=== PATIENT | female | born 1955 | race Caucasian/White ===

== ENCOUNTER 2016-10-06 22:08 | Inpatient (IN) | END 2016-10-08 14:25 | disposition home or self-care (01) | DRG 390 | DX: K56.60 Unspecified intestinal obstruction (principal); E78.5 Hyperlipidemia, unspecified; E66.9 Obesity, unspecified; Z68.35 Body mass index [BMI] 35.0-35.9, adult; K57.90 Diverticulosis of intestine, part unspecified, without perforation or abscess without bleeding; K44.9 Diaphragmatic hernia without obstruction or gangrene; D72.829 Elevated white blood cell count, unspecified ==

== ENCOUNTER 2016-10-14 15:05 | Outpatient (CLI) | payer OTHER ==
[~2016-10-14] VITALS: Ht 160 cm; Wt 87.0 kg
[~2016-10-14 15:05] MED LIST: ATOR20TA65 PO; PANT40TA3 PO
[2016-10-14 15:23] VITALS: BP 135/62; PULSE 73; RESP 16; Ht 160 cm; Wt 87.0 kg
--- NOTE | 2016-10-14 16:04 | PN ---
Date/Time of Note Date/Time of Note DATE: 10/14/16 TIME: 15:30 Outpatient Progress Note Chief Complaint Abdominal pain/hyperlipidemia/PUD HPI Abdominal pain/patient was recently admitted with abdominal pain, no nausea vomiting, patient has small bowel obstruction, improved significantly, patient has BMI on regular basis, no blood or mucus, Hyperlipidemia/no xanthoma, on medication, no side effect of medication, PUD/no nausea or vomiting, no abdominal distention, no heartburn, patient did not refill the medication, Review of Systems Const: No Fever, no chills, no Wt. loss, no Fatigue, normal appetite, no diaphoresis. Eyes: No pain, no discharge, no redness, no visual change, no foreign body. ENT: No pain, no bleeding, no congestion, no sore throat, no dysphagia, no discharge or rhinitis. Lymph: No adenopathy, no tender nodes, no lymphedema. Resp: No SOB, no cough, no sputum, no wheezing, no chest pain. CV: No chest pain, no palpitaions, no MOSS, no PND, no edema. GI: Normal appetite, minimal abdominal discomfort, \, no nausea, no vomiting, no diarrhea, no blood, no constipation. : No frequency, no urgency, no dysuria, no hematuria, no flank pain, no discharge, no bleeding. Musc: No bone/joint pain, no back pain, no neck pain, no knee pain, no restricted ROM. Skin: No rash, no skin lesions, no erythema, no laceration, no bruising, no pruritus. Neuro: No PARIS, no dizziness, no syncope, no seizure, no focal-weakness. Endo: No polyuria, no polydypsia, no dry-skin, no temp-intolerance. Psych: No hallucinations, no depression, no anxiety, no suicidal ideation. Ext: No edema, no pain, no ulcer, no weakness. Physical Exam General Appearance: A 61 year-old female who appears well-developed, well- nourished, in no acute distress. HEENT: Head normocephalic, atraumatic. Pupils equal, round, reactive to light and accommodate. Sclerae are no jaundice. Nasal turbinates pink without erythema or nasal discharge. Mucous membranes pink and moist without lesions. Oropharynx clear without any exudate or discharge. NECK: Supple. Trachea midline, No thyromegaly, No cervical lymphadenopathy, No mass, No carotid bruits, No JVD, Carotid pulses 2+ bilaterally. PULMONARY: Clear to auscultaion bilaterally, No retractions, Chest expansion symmetric bilaterally, no rales, no ronchi, no dulness on percussion. CARDIAC: Normal SI and S2, Regular rate and rythm, no murmur, gallop, or rub. GASTROINTESTINAL: Abdomen is soft, n minimal abdominal especially epigastric discomfort,, Non Rigid, No distention, Positive bowel sounds x4 quad Minimal abdominal especially epigastric discomfort, EXTREMITIES: Bilateral lower extremities normal, no edema, no phlabitus, pulse palpable, no contracture. MUSCULOSKELETAL: Spine Normal, Non-tender, Normal range of motion, No swelling, no deformity, no clubbing, or cyanosis, the patient has no edema to bilateral lower extremities, dorsalis pedis pulses palpable bilaterally. NEUROLOGIC: The patient is awake, alert, oriented, responding to yes/no questions appropriately, moving all extremities, cranial nerve intact, normal strenght, normal power, normal coordination, normal gait. Allergies Coded Allergies: Penicillins (Verified Allergy, Unknown, 04/07/14) PMH PUD/small bowel obstruction/hyperlipidemia/ Social Hx No smoking, patient drinks wine socially, and before dinner, Family Hx Noncontributory Patient History: Endocrine and metabolic disease G8 SIBLING G8 SIBLING 32 MOTHER Hypertension 32 MOTHER No Family History of: Cardiac disorder Confusion Respiratory disorder Unconscious Assessment/Plan Impression Abdominal pain secondary to small bowel obstruction resolved Hyperlipidemia PUD Plan Patient feeling much better, patient has no abdominal distention, no cramps, patient able to move bowel movements, Patient did not refill of Protonix, patient encouraged to refill now, patient still has a prescription, Patient encouraged to follow with the primary care physician, Medications Home Meds Active Scripts Atorvastatin Calcium (Atorvastatin Calcium) 20 Mg Tablet, 20 MG PO HS for 30 Days, TAB Prov:LARISSA GARRETT 10/08/16 Pantoprazole* (Protonix*) 40 Mg Tablet., 40 MG PO DAILY for GASTROINTESTINAL UPSET, #30 TAB Prov:CAITLYN GARCES MD 04/08/14 CRESCENCIO GARCES MD Oct 14, 2016 15:40
== END 2016-10-14 16:26 | disposition home or self-care (01) ==
LOC: DCC 15:05
PROVIDERS: ATTEND Internal Medicine
DX: K56.69 Other intestinal obstruction (principal); R10.9 Unspecified abdominal pain; E78.5 Hyperlipidemia, unspecified; K27.9 Peptic ulcer, site unspecified, unspecified as acute or chronic, without hemorrhage or perforation; Z88.0 Allergy status to penicillin